=== PATIENT | female | born 1955 | race Caucasian/White ===

== ENCOUNTER 2018-07-02 10:50 | Day surgery (SDC) | payer BC ==
[~2018-07-02] VITALS: Ht 17.8 cm; Wt 108.6 kg
[2018-07-02 11:16] VITALS: BP 164/90; PULSE 72; TEMP 99
[2018-07-02] MEDS ORDERED: PRINZIDE 25 MG-1 TAB PO (11:21)
[2018-07-02] MEDS ORDERED: LOPRESSOR 225 MG/TAB PO (11:22)
[2018-07-02] MEDS ORDERED: NORVASC 10MG10 MG PO (11:22)
[2018-07-02] MEDS ORDERED: ALLEGRA 180MG180 MG PO (11:22)
[2018-07-02] MEDS ORDERED: CALCIUM 600 PLU1 TAB PO (11:23)
[2018-07-02] MEDS ORDERED: MULTI VITAMINS1 TAB PO (11:23)
[2018-07-02 12:50] VITALS: BP 143/82; PULSE 74; TEMP 98.7
--- NOTE | 2018-07-02 12:50 | NUR ---
PT RETURNS TO [facility] BY CART FROM PROCEDURE. AMBUALTES FROM CART TO CHAIR WITH STANDBY ASSIST. MONITORS APPLIED. VSS AND AT BASELINE. PT DENIES PAIN OR NAUSEA. CALL LIGHT IN REACH. PT REQUESTS ICE CREAM AND PEPSI.
[2018-07-02 13:05] VITALS: BP 156/77; PULSE 71
--- NOTE | 2018-07-02 13:05 | NUR ---
PT REMAINS ALERT. TOLERATES FOOD AND DRINK. VSS AND WNL. IV TO RIGHT AC DC'D AT THIS TIME. CALL LIGHT IN REACH.
[2018-07-02 13:20] VITALS: BP 152/72; PULSE 71
--- NOTE | 2018-07-02 13:20 | NUR ---
DISCHARGE INSTRUCTIONS GIVEN. PT VERBALIZES UNDERSTANDING. DISCHARGED TO HOME AMBULATORY WITH VASCULAR ULTRASOUND TECHNICIAN.
== END 2018-07-02 13:30 | disposition home or self-care (01) ==
LOC: SDCO 10:50
DX: R13.12 Dysphagia, oropharyngeal phase (principal)
CPT/HCPCS: J2250; J3010; J7030

== ENCOUNTER 2018-09-04 10:56 | Day surgery (SDC) | payer BC ==
[~2018-09-04 10:56] MED LIST: ALLEGRA 180MG180 MG PO; CALCIUM 600 PLU1 TAB PO; LOPRESSOR 225 MG/TAB PO; MULTI VITAMINS1 TAB PO; NORVASC 10MG10 MG PO; PRINZIDE 25 MG-1 TAB PO
[2018-09-04] MEDS ORDERED: ELIQUIS 5MG PO (11:21)
[2018-09-04] MEDS ORDERED: CLARITIN 1010 MG/TAB PO (11:22)
[2018-09-04] MEDS ORDERED: PROAIR HFA0.09 MG/AC IH (11:24)
[2018-09-04 11:30] VITALS: BP 145/79; PULSE 61; TEMP 98.5
[2018-09-04] MEDS ORDERED: PACERONE400 MG PO (12:01)
[2018-09-04] MEDS ORDERED: CORDARONE200 MG/TAB PO (12:02)
--- NOTE | 2018-09-04 12:20 | NUR ---
Pt in SR per Dr. Juarez. ADRIAN/CV cancelled. Pt discharged per ambulation with .
== END 2018-09-04 12:23 | disposition home or self-care (01) ==
LOC: COL.CAR 10:56
DX: I48.91 Unspecified atrial fibrillation (principal); Z79.01 Long term (current) use of anticoagulants; Z90.49 Acquired absence of other specified parts of digestive tract; Z80.9 Family history of malignant neoplasm, unspecified; Z82.49 Family history of ischemic heart disease and other diseases of the circulatory system; G47.33 Obstructive sleep apnea (adult) (pediatric); R09.89 Other specified symptoms and signs involving the circulatory and respiratory systems; I10 Essential (primary) hypertension; R60.0 Localized edema; Z53.8 Procedure and treatment not carried out for other reasons

== ENCOUNTER 2018-10-23 08:38 | Observation (INO) | payer BC ==
[2018-10-23] VITALS (19 sets, daily range): BP systolic 69–156; BP diastolic 47–85; PULSE 58–210; TEMP 97.7–98.1
[~2018-10-23] VITALS: Ht 170.2 cm; Wt 111.6 kg
[~2018-10-23 08:38] MED LIST changes: +CLARITIN 1010 MG/TAB PO; +CORDARONE200 MG/TAB PO; +ELIQUIS 5MG PO; +PACERONE400 MG PO; +PROAIR HFA0.09 MG/AC IH
[2018-10-23] MEDS ORDERED: MACROBID 1100 MG/CAP PO (09:00)
[2018-10-23 09:26] LABS: HEMATOCRIT 41.7 % (37.0-47.0); HEMOGLOBIN 13.5 g/dl (12.5-16.0); MEAN CELL VOLUME 91 fl (80.0-100.0); MEAN CORPUSCULAR HEMOGLOBIN 30 pg (27.0-31.0); MEAN CORPUSCULAR HGB CONC 32 g/dl (33.0-37.0); MEAN PLATELET VOLUME 10.6 fl (7.4-10.4); PLATELET COUNT 216 K/mm3 (130-400); RED BLOOD COUNT 4.56 M/mm3 (4.10-5.30); REDCELL DISTRIBUTION WIDTH-CV 13.6 % (11.5-14.5)
[2018-10-23 09:35] LABS: CALCIUM 9.5 mg/dL (8.4-10.2); CREATININE, serum 0.97 (0.52-1.25); POTASSIUM 4.2 mmol/L (3.4-5.0)
[2018-10-23 10:01] LABS: PROTHROMBIN TIME 11.4 SECONDS (9.7-12.8)
--- NOTE | 2018-10-23 12:10 | NUR ---
SEE MEREJOHN FOR MEDICATION ADMINISTRATION TIMES AND INTRA/POST SEDATION SCORES
--- NOTE | 2018-10-23 12:46 | NUR ---
REPORT TAKEN FROM SABINO SANTIAGO IN [facility]. AT BEDSIDE. NO PAIN.
--- NOTE | 2018-10-23 14:50 | NUR ---
PT WAS UP AND AMBULATING TO THE RESTROOM. PT STATED AFTER SHE WENT TO THE RESTROOM AND WAS WASHING HER HANDS SHE BEGAN TO START BLEEDING. THIS RN AND SABINO HARPER ASSISTED PT BACK TO HER BED. PT SUPINE, PRESSURE APPLIED TO THE RIGHT GROIN BY SABINO HARPER. THIS RN CALLED AIRCRAFT POWERTRAIN REPAIRER AND SABINO STROUD ARRIVED TO CONTINUE HOLDING PRESSURE FOR SABINO HARPER. HEMASTASIS WAS ACHIEVED AT 1500, GAUZE AND TEGADERM WERE APPLIED BY SABINO STROUD. DR BRADSHAW WAS NOTIFIED AND ORDERED 2 ADDITIONAL HOURS OF BEDREST AT THIS TIME. FLUIDS WERE INCREASED DURING ACTIVE BLEEDING. PT STATED SHE WAS FEELING BETTER ONCE SHE WAS LAYING DOWN IN BED. PT EDUCATED ON THE ADDITIONAL 2 HOURS OF BEDREST AND ENCOURAGED TO KEEP HER HEAD DOWN AND RIGHT LEG STRAIGHT. PT AWARE.
--- NOTE | 2018-10-23 14:56 | NUR ---
Called to pts bedside for femoral artery bleed after walking to the bathroom. Staff holding manual pressure to site. No active bleeding observed. Manual pressure held for 10 minutes and hemostasis achieved. Small hematoma worked out of site with pressure. Distal pulses: DP+2 and PT +2. Patients blood pressure and pulse stable. Pt tolerated procedure well. Approximately 20ml of blood loss. Dr. Lucas notified by express unit staff. Sterile gauze dressing applied and covered with tegaderm dressing.
--- NOTE | 2018-10-23 15:51 | NUR ---
PT HAS MILD HEMATOMA ON THE MEDIAL ASPECT OF HER RIGHT GROIN. PT STATES THERE IS TENDERNESS WHEN THE GROIN IS PALPATED. THIS RN WILL CONTINUE TO MONITOR SITE.
--- NOTE | 2018-10-23 17:21 | NUR ---
PT WAS UP AND AMBULATING IN AND AROUND THE UNIT. VOIDED WITH NO COMPLICATIONS. PT DRESSING TO BE DISCHARGED HOME AND BECAME NAUSEATED, PALE AND FELT SHE COULD HAVE A BM. PT SAT ON TOILET AND THEN WAS TRANSFERED TO THE BED AND PLACED IN REVERSE TRENDELENBERG. FLUIDS WERE OPENED. AT BEDSIDE. SPOKE WITH DR BRADSHAW AND HE STATED TO ADMIT PT FOR OBSERVATION OVERNIGHT. PT AGREED. THIS RN CALLED [facility]NS[facility] HEALTH COACH. ONSITE HEALTH COACH AWARE.
--- NOTE | 2018-10-23 19:53 | NUR ---
REPORT GIVEN TO SABINO ORNELAS ON MEDICAL FLOOR. PT WILL BE GOING TO RM 312. PT EATING AT THIS TIME AND DOES NOT COMPLAIN OF NAUSEA. WILL TRANSFER PT WHEN FINISHED EATING.
--- NOTE | 2018-10-23 20:50 | NUR ---
Pt brought to Rm 312 per w/c by mobile home laborer staff. A&O x 4. Denies pain. R groin with dressing to site clean, dry and intact. Area soft to touch. Pulses to bilat LE strong and regular. 1/2 NS infusing per dial a flow in L FA. Site without any s/s infiltration. Out of w/c and ambulates to BR to void and then out to wash hands and to bed. States she is not hungry. Had heartcath today with an episode of bleeding from site after 2 hour bedrest. VS monitored. Call light within reach.
--- NOTE | 2018-10-23 21:01 | NUR ---
TRANSFERED PT UPSTAIRS TO THE CARE OF SABINO ORNELAS ON MEDICAL FLOOR. PT IS IN RM 312. PT STATED SHE WAS FEELING BETTER.
--- NOTE | 2018-10-23 22:55 | NUR ---
Raised bed up to take meds and became lightheaded. Lowered head of bed and started feeling better. Sat up at edge of bed. And then assisted pt with 2:1 to BR. Tolerated well. Meds taken and then back to bed.
--- NOTE | 2018-10-24 03:15 | NUR ---
Pt remains stable after coming to medical floor. States she has been resting. Tele on with HR 62 and regular.
[2018-10-24 04:25] VITALS: BP 155/71; PULSE 65; TEMP 98.2
[2018-10-24 05:05] VITALS: BP 155/71; PULSE 65; TEMP 98.2
--- NOTE | 2018-10-24 08:18 | NUR ---
Assessment completed, alert/oriented, vital signs stable, denies pain or discomfort, right femoral access site looks good/ soft and no signs of hematoma or bleeding, dressing is C/D/I, she has ordered breakfast and morning meds given, anticipating discharge home today
[2018-10-24 08:23] VITALS: BP 140/76; PULSE 56; TEMP 98.2
--- NOTE | 2018-10-24 10:59 | NUR ---
Plan: Patient plans to return home with her spouse Curtis , Assess: SW met with patient in room. Patient reports that she [place] with [place] [facility] [place] Patient reports that her pcp is Dr. Cuevas and she uses [facility] locally for RX. Patient reports that her Niece Naomi Casiano is her DPOA but denies having a contact number for her. Patient denies the use of any DME or needing any HHS. Action: LUCIEN edcuated on resources, no additional concerns identified.
--- NOTE | 2018-10-24 12:16 | NUR ---
Discharge orders reviewed, instructed to follow up with in about 1 months time, NO new meds and NO medication changes made, IV and tele removed, activity/ bathing restrictions discussed, isntructed to keep right femoral access site clean and dry, Do not over exert or lift >10 lbs for 1 week, she is leaving with her , I personally escorted them out to their vehicle
== END 2018-10-24 12:18 | disposition home or self-care (01) ==
LOC: COL.CAR 08:38 → MEDICAL 18:23
PROVIDERS: ADMIT Internal Medicine Interventional Cardiology
DX: R07.9 Chest pain, unspecified (principal); R94.39 Abnormal result of other cardiovascular function study; I48.91 Unspecified atrial fibrillation; Z79.01 Long term (current) use of anticoagulants; Z90.49 Acquired absence of other specified parts of digestive tract; Z82.49 Family history of ischemic heart disease and other diseases of the circulatory system
CPT/HCPCS: G0378; G0379; J1644; J2250; J3010

== ENCOUNTER → 2019-10-15 | Outpatient (CLI) | payer MEDICARE, BC ==
[~2019-10-15] MED LIST changes: +MACROBID 1100 MG/CAP PO
== END ==
LOC: COL.PUL 11:20
DX: R06.02 Shortness of breath (principal)